=== PATIENT | male | born 1995 | race Caucasian/White ===

== ENCOUNTER 2018-03-23 09:22 | Emergency (ER) | payer SELFPAY ==
[2018-03-23 09:32] VITALS: BP 157/83; PULSE 107; RESP 14; TEMP 36.4; O2SAT 100
--- NOTE | 2018-03-23 10:15 | ED_ITS ---
HPI - Back Pain/Injury General Chief Complaint: Back Pain/Injury Stated Complaint: back/leg pain, can barely walk History of Present Illness HPI Narrative: HPI 30-year-old male presents for evaluation of 6 days of gradual onset waxing and waning low right-sided back pain that radiates down the posterior aspect of his right leg is with mild subjective paresthesias of his 5th toe, pain is provoked by walking, flexing and hip, and relieved by rest and laying supine. Patient denies a history of recent trauma, fevers, chills, unexpected weight loss, decreased perineal sensation when toileting, difficulty urinating or incontinence, morning stiffness, IV drug use, recent invasive medical procedures , presyncope, abdominal pain, Marfan's disease, or dysuria. M/S/F/SocHx notable for: please see HPI; remainder reviewed with patient and in chart. ROS: Negative constitutional, eye, cardiovascular, pulmonary, GI, , MSK, skin , neurologic, psychiatric, endocrine unless noted in the HPI. Exam Gen: Pleasant, non-toxic appearing, resting comfortably. HEENT: NC, AT, PEERL, EOMI. Resp: CTAB Card: RRR GI: ND, non-tender to palpation, no palpable midline masses, no palpable midline pulsatility. : No CVA tenderness to percussion bilaterally. MSK: No visible deformities, strength and tone WNL. No lower thoracic or lumbar spinal TTP, step offs or deformities. Right sided paraspinal back pain at approximately L5/S1, palpation intermittently reproduces a shooting sensation down the posterior aspect of the right leg, no further paraspinal TTP. Skin: Normal color with no visible lesions. Neuro: AO x 3, no facial asymmetry, vision and hearing WNL. Straight leg raise test - positive right, negative left. BLE distal sensation intact on all toes, 5 /5 dorsiflexion / plantarflexion bilaterally. Gait: mildly antalgic, normal, narrow based gait, able to walk unassisted and stand on heels and toes with full apparent strength. Psych: Mood and affect appropriate. MDM Previous chart, nursing note, and vitals reviewed. A: 30-year-old male presents for evaluation of 6 days of gradual onset waxing and waning low right-sided back pain that radiates down the posterior aspect of his right leg is with mild subjective paresthesias of his 5th toe, pain is provoked by walking, flexing and hip, and relieved by rest and laying supine. DDx: muscle strain, muscle spasm, sciatica, lumbar radiculopathy, cauda equina syndrome, spinal cord abscess, vertebral osteomyelitis, vertebral diskitis, fracture, seronegative spondyloarthropathy, abdominal aortic aneurysm. Evaluation: * Cauda equina - consider unlikely given normal perineal sensation, lack of incontinence or urinary retention. * Infection - abscess, vertebral osteomyelitis, and diskitis are unlikely as the patient is immunocompetent and is with an absence of infectious signs and risk factors on ROS, and a lack of point tenderness. * Fracture - doubt given the absence of spinal TTP and lack of prior trauma * Seronegative spondyloarthropathy - unlikely, no further evaluation currently indicated given the absence of morning stiffness and negative RA, psoriatic arthritis, and autoimmune disease history. * AAA or Dissection - given the lack of a palpable pulsatile abdominal mass, abdominal pain, presyncope, an abdominal aortic aneurysm as well as dissection is considered unlikely and further investigation is not currently indicated. * HTN - Patient was notified of their elevated blood pressure and recommended to follow up with their primary care physician. As the patient is without evidence of acute end organ dysfunction no further emergent evaluation is indicated as per the 2013 [employer] clinical policy. * Consider a lumbar radiculopathy, most likely L5 - S2 region to be the cause of the patient's symptoms. Counseled patient regarding natural course of radicular back pain, given return to care instructions, and recommendation for primary care physician follow up. Discharged with instructions to use OTC medications. Impression: Back Pain. (please reference below for remainder of encounter information) Related Data Home Medications Medication Instructions Recorded Confirmed acetaminophen [Tylenol Extra 1,000 mg PO Q6H PRN 03/23/18 03/23/18 Strength] Allergies Allergy/AdvReac Type Severity Reaction Status Date / Time No Known Drug Allergies Allergy Verified 03/23/18 09:34 PFSH Social History Smoking Status: Never smoker Exam Initial Vital Signs Initial Vital Signs: Vital Signs Temperature 97.6 F 03/23/18 09:32 Pulse Rate 107 H 03/23/18 09:32 Respiratory Rate 14 03/23/18 09:32 Blood Pressure 157/83 H 03/23/18 09:32 Pulse Oximetry 100 03/23/18 09:32 Course Vital Signs - 8 hr 03/23/18 09:32 Temperature 97.6 F Pulse Rate 107 H Respiratory Rate 14 Blood Pressure 157/83 H Pulse Oximetry 100 Discharge Plan Departure Prescriptions: No Action acetaminophen [Tylenol Extra Strength] 500 mg Tablet 1,000 mg PO Q6H PRN (Reason: Pain (Scale Score 1-3)) RF: 0
[2018-03-23] MEDS: IBUPROFEN 400 MG TABLET 800 MG PO (10:25)
[2018-03-23] MEDS: ACETAMINOPHEN 325 MG TABLET 975 MG PO (10:26)
== END 2018-03-23 10:38 | disposition home or self-care (01) ==
PROVIDERS: Emergency Provider Emergency Medicine
DX: M54.9 Dorsalgia, unspecified (principal)
CPT/HCPCS: 99282; 99283

== ENCOUNTER → 2020-11-09 09:59 | Outpatient (CLI) | payer OTHER, MEDICAID, SELFPAY ==
[2020-11-09] MEDS: COVID-19 VACC #1, MRNA(MOD) 100 MCG/0.5 ML VIAL IM (10:06)
== END ==
PROVIDERS: PCP Physician Assistant Medical; Visit Provider Internal Medicine
DX: Z23 Encounter for immunization (principal)
CPT/HCPCS: 0011A; 91301

== ENCOUNTER → 2020-12-08 09:46 | Outpatient (CLI) | payer OTHER, MEDICAID, SELFPAY ==
[2020-12-08] MEDS: COVID-19 VACC #2, MRNA(MOD) 100 MCG/0.5 ML VIAL IM (09:55)
== END ==
PROVIDERS: PCP Physician Assistant Medical; Visit Provider Internal Medicine
DX: Z23 Encounter for immunization (principal)
CPT/HCPCS: 0012A; 91301

== ENCOUNTER → 2021-08-22 09:19 | Outpatient (CLI) | payer OTHER, MEDICAID, SELFPAY ==
[2021-08-22 22:29] LABS: COVID19 - ORCAS (NP or Nasal) POSITIVE (Negative)
== END ==
PROVIDERS: PCP Physician Assistant Medical; Visit Provider Family Medicine
DX: U07.1 COVID-19 (principal); Z20.822 Contact with and (suspected) exposure to COVID-19
CPT/HCPCS: U0003

== ENCOUNTER → 2021-09-05 08:31 | Outpatient (CLI) | payer OTHER, MEDICAID, SELFPAY ==
[2021-09-05 23:58] LABS: COVID19 - ORCAS (NP or Nasal) POSITIVE (Negative)
== END ==
PROVIDERS: PCP Physician Assistant Medical; Referring Provider Physician Assistant; Visit Provider Physician Assistant
DX: U07.1 COVID-19 (principal); Z20.822 Contact with and (suspected) exposure to COVID-19
CPT/HCPCS: C9803; U0003

== ENCOUNTER → 2021-10-19 08:40 | Outpatient (CLI) | payer OTHER, MEDICAID, SELFPAY ==
[2021-10-19 19:24] LABS: COVID19 - ORCAS (NP or Nasal) Negative (Negative)
== END ==
PROVIDERS: PCP Physician Assistant Medical; Visit Provider Physician Assistant
DX: Z20.822 Contact with and (suspected) exposure to COVID-19 (principal)
CPT/HCPCS: C9803; U0003

== ENCOUNTER → 2024-09-08 15:43 | Outpatient (CLI) | payer OTHER, SELFPAY | PROVIDERS: PCP Physician Assistant; Visit Provider Physician Assistant | DX: J02.9 Acute pharyngitis, unspecified (principal) | CPT/HCPCS: 87070; 87880 ==

== ENCOUNTER → 2024-09-09 10:32 | Outpatient (CLI) | payer OTHER, SELFPAY ==
[2024-09-09 19:40] LABS: Add Manual Diff / Slide Review NO; Basophils Absolute Auto 0 /uL (0-100); Basophils Percent Auto 0.6 % (0-2); Eosinophils Absolute Auto 200 /uL (0-450); Eosinophils Percent Auto 2.8 % (2-4); Hematocrit 47.4 % (41-53); Hemoglobin 16.6 g/dL (13.5-17.5); Lymphocytes Absolute Auto 1400 /uL (1100-4500); Lymphocytes Percent Auto 18.7 % (25-40); Mean Corpuscular HGB Conc 35.1 % (30-36); Mean Corpuscular Hemoglobin 32.6 PG (26-34); Monocytes Absolute Auto 700 /uL (0-900); Monocytes Percent Auto 9.7 % (3-14); Neutrophils Absolute Auto 5200 /uL (1500-7000); Neutrophils Percent Auto 68.2 % (50-75); Platelet Count 251 X10^3/uL (150-400); White Blood Cell Count 7.6 X10^3/uL (4.5-11.0)
[2024-09-09 19:46] LABS: Alanine Aminotransferase 81 IU/L (<50); Albumin 4.7 g/dL (3.5-5.0); Albumin Globulin Ratio 1.6 (1.0-2.8); Alkaline Phosphatase 59 U/L (38-126); Aspartate Aminotransferase 54 IU/L (17-59); BUN Creatinine Ratio 13.9 (6-22); Bilirubin Total 1.2 mg/dL (0.2-1.3); Blood Urea Nitrogen 15 mg/dL (9-20); Calcium 9.5 mg/dL (8.4-10.2); Carbon Dioxide 29 mmol/L (22-32); Chloride 103 mmol/L (98-107); Estimated Glomerular Filt Rate > 60 mL/min (>60); Glucose 95 mg/dL (70-100); HEMOLYSIS 22 (0-50); Potassium 4.4 mmol/L (3.4-5.1); Sodium 136 mmol/L (137-145); Total Protein 7.7 g/dL (6.3-8.2)
[2024-09-09 19:48] LABS: Monotest Negative (Negative)
[2024-09-11 15:36] LABS: Hep C Virus Ab w/Reflex Quant NEGATIVE s/c (NEGATIVE)
== END ==
PROVIDERS: PCP Physician Assistant; Visit Provider Physician Assistant
DX: R05.9 Cough, unspecified (principal); R53.83 Other fatigue; J02.9 Acute pharyngitis, unspecified; R19.5 Other fecal abnormalities
CPT/HCPCS: 80053; 85025; 86318; 86803

== ENCOUNTER → 2024-09-11 10:13 | Outpatient (CLI) | payer OTHER, SELFPAY ==
[2024-09-11 19:46] LABS: Influenza A - CEPHEID Flu A NEGATIVE (NEGATIVE); Influenza B - CEPHEID Flu B NEGATIVE (NEGATIVE); Respiratory Syncytial Virus POSITIVE (Negative)
[2024-09-11 19:47] LABS: COVID-19 CEPHEID 4-PLEX PCR Negative (Negative)
== END ==
PROVIDERS: PCP Physician Assistant; Visit Provider Physician Assistant Medical
DX: J32.9 Chronic sinusitis, unspecified (principal); J98.4 Other disorders of lung
CPT/HCPCS: 0241U

== ENCOUNTER 2024-09-11 18:49 | Emergency (ER) | payer OTHER, MEDICAID, SELFPAY ==
[2024-09-11 19:19] VITALS: BP 149/83; PULSE 102; RESP 20; TEMP 37.3; O2SAT 97; BMI 31.6
[2024-09-11] MEDS: IBUPROFEN 400 MG TABLET PO (19:40)
--- NOTE | 2024-09-11 19:45 | DI.RAD.S_ITS ---
PROCEDURE: XR CHEST 2V INDICATIONS: 7 weeks of cough TECHNIQUE: 2 views of the chest were acquired. COMPARISON: [facility] ([place]), CR, XR CHEST 2V, 09/11/2024, 10:27. FINDINGS: Surgical changes and devices: None. Lungs and pleura: Lungs are clear. No pleural effusions or pneumothorax. Mediastinum: Mediastinal contours are normal. Heart size is normal. Bones and chest wall: No suspicious bony abnormalities. Soft tissues appear unremarkable. IMPRESSION: No acute pulmonary process. Dictated by: Hui Trevino M.D. on 09/11/2024 at 20:18 Approved by: Hui Trevino M.D. on 09/11/2024 at 20:19
[2024-09-11 20:07] VITALS: BP 159/108
[2024-09-11 20:08] VITALS: BP 145/81; PULSE 96; O2SAT 97
--- NOTE | 2024-09-11 20:11 | PC.NURSE ---
Pt ambulatory to imaging with environmental health technologist
[2024-09-11 20:29] LABS: Adenovirus Not Detected (Not Detect); B. parapertussis Not Detected (Not Detecte); Bordetella pertussis Not Detected (Not Detect); Chlamydophila pneumoniae Not Detected (Not Detect); Coronavirus 229E Not Detected (Not Detect); Coronavirus HKU1 Not Detected (Not Detect); Coronavirus NL 63 Not Detected (Not Detect); Coronavirus OC43 Not Detected (Not Detect); Human Metapneumovirus Not Detected (Not Detect); Human Rhinovirus/Enterovirus Not Detected (Not Detect); Influenza A Not Detected (Not Detect); Influenza B Not Detected (Not Detect); Mycoplasma pneumoniae Not Detected (Not Detect); Parainfluenza Virus 1 Not Detected (Not Detect); Parainfluenza Virus 2 Not Detected (Not Detect); Parainfluenza Virus 3 Not Detected (Not Detect); Parainfluenza Virus 4 Not Detected (Not Detect); Respiratory Syncytial Virus Detected (Not Detect); SARS- CoV-2 Not Detected (Not Detecte)
[2024-09-11 20:30] VITALS: PULSE 97; O2SAT 96
[2024-09-11 20:52] VITALS: BP 144/74; PULSE 93; RESP 14; O2SAT 97
[2024-09-11 21:00] VITALS: BP 131/68; PULSE 93; RESP 18; O2SAT 98
--- NOTE | 2024-09-11 21:25 | ED_ITS ---
HPI - General Adult General Chief complaint: Upper Respiratory Symptoms Stated complaint: 7 weeks of a cold; chest congestion, sore throat Time Seen by Provider: 09/11/24 20:05 Source: patient Mode of arrival: Ambulatory History of Present Illness HPI narrative: Patient was a 29-year-old male who arrives in the emergency department stating that he has been sick for the past 7 weeks. He describes his sickness has cough and congestion and sore throat and subjective fevers. He saw his primary doctor's clinic earlier in the week. Was started on amoxicillin and he has been taking this for the past week but states it was not helping his symptoms potentially even making them worse. He was tested for COVID at the clinic today which was negative. He was advised to come to the emergency department for further evaluation. Related Data Home Medications Medication Instructions Recorded Confirmed acetaminophen 500 mg tablet 1,000 mg PO Q6H PRN Pain (Scale 03/23/18 09/08/24 (Tylenol Extra Strength) Score 1-3) Previous Rx's Medication Instructions Recorded amoxicillin 875 mg-potassium 1 tab PO BID 10 days #20 tabs 09/08/24 clavulanate 125 mg tablet codeine 10 mg-guaifenesin 100 mg/5 5 ml PO Q6H PRN cough #120 mL 09/08/24 mL oral liquid albuterol sulfate 90 mcg/actuation See Rx Instructions inhalation 09/10/24 aerosol inhaler Q4-6H PRN shortness of breath or wheezing #6.7 grams benzonatate 200 mg capsule 200 mg PO BID-TID PRN cough #20 09/11/24 caps fluticasone propionate 50 1 spray intranasal BID #16 grams 09/11/24 mcg/actuation nasal spray,suspension (Flonase Allergy Relief) sodium chloride 0.65 % nasal spray 2 spray intranasal QID #44 mL 09/11/24 aerosol (Saline Nasal Mist) Allergies Allergy/AdvReac Type Severity Reaction Status Date / Time No Known Drug Allergies Allergy Verified 09/08/24 14:31 Review of Systems Review of Systems ROS Unobtainable: All systems reviewed & are unremarkable except as noted in HPI and below Patient History Social History Smoking Status: Never smoker Smoking Status: Never smoker alcohol intake frequency: 0-2 drinks per day Exam Initial Vital Signs Initial Vital Signs: Vital Signs Temperature 99.2 F 09/11/24 19:19 Pulse Rate 102 H 09/11/24 19:19 Respiratory Rate 20 09/11/24 19:19 Blood Pressure 149/83 H 09/11/24 19:19 Pulse Oximetry 97 09/11/24 19:19 Oxygen Delivery Method Room Air 09/11/24 19:19 Const General: cooperative, comfortable and No ill appearing Resp Effort & Inspection: normal respiratory effort Auscultation: clear to auscultation bilaterally Cardio Rate: regular rate Rhythm: regular rhythm Skin General: no rashes or lesions noted Neuro General: patient alert, patient awake and moves all extremities Extrem General: capillary refill normal Course Orders Ordered: ED Orders 09/11/24 19:34 Respiratory Panel (Film Array) Stat 09/11/24 19:45 CXR [XR chest 2V] Stat Discontinued Medications Ibuprofen (Ibuprofen 400 Mg Tablet) 400 mg PO NOW ONE Stop: 09/11/24 19:36 Last Admin: 09/11/24 19:40 Dose: 400 mg Documented By: ALMA Vital Signs Vital signs: Vital Signs - 8 hr 09/11/24 19:19 09/11/24 20:07 09/11/24 20:08 Temperature 99.2 F Pulse Rate 102 H Respiratory Rate 20 Blood Pressure 149/83 H 159/108 H 145/81 H Pulse Oximetry 97 Oxygen Delivery Method Room Air 09/11/24 20:08 09/11/24 20:30 09/11/24 20:52 Temperature Pulse Rate 96 H 97 H Respiratory Rate Blood Pressure 144/74 H Pulse Oximetry 97 96 Oxygen Delivery Method 09/11/24 20:52 09/11/24 21:00 09/11/24 21:00 Temperature Pulse Rate 93 H 93 H Respiratory Rate 14 18 Blood Pressure 131/68 Pulse Oximetry 97 98 Oxygen Delivery Method Room Air Medical Decision Making Medical Records Medical records reviewed: Yes I reviewed the patient's medical records. Lab Data Lab results reviewed: Yes I reviewed the patient's lab results. Labs: Lab Results 09/11/24 Range/Units 19:34 Chlamy pneumoniae PCR Not detected (Not Detect) Adenovirus (PCR) Not detected (Not Detect) B. pertussis DNA (PCR) Not detected (Not Detect) B.parapertussis DNA PCR Not detected (Not Detecte) Coronavirus OC43 (PCR) Not detected (Not Detect) Coronavirus HKU1 (PCR) Not detected (Not Detect) Coronavirus 229E (PCR) Not detected (Not Detect) SARS-CoV-2 (PCR) Not detected (Not Detecte) Coronavirus NL63 (PCR) Not detected (Not Detect) Human Metapneumovir PCR Not detected (Not Detect) Influenza Type A (PCR) Not detected (Not Detect) Influenza Type B (PCR) Not detected (Not Detect) M. pneumoniae (PCR) Not detected (Not Detect) Parainfluenza 1 (PCR) Not detected (Not Detect) Parainfluenza 2 (PCR) Not detected (Not Detect) Parainfluenza 3 (PCR) Not detected (Not Detect) Parainfluenza 4 (PCR) Not detected (Not Detect) RSV (PCR) Detected H (Not Detect) Entero/Rhino (PCR) Not detected (Not Detect) Imaging Data Chest x-ray: Radiologist's Impression: PROCEDURE: XR CHEST 2V INDICATIONS: 7 weeks of cough TECHNIQUE: 2 views of the chest were acquired. COMPARISON: [facility] [place], , XR CHEST 2V, 09/11/2024, 10:27. FINDINGS: Surgical changes and devices: None. Lungs and pleura: Lungs are clear. No pleural effusions or pneumothorax. Mediastinum: Mediastinal contours are normal. Heart size is normal. Bones and chest wall: No suspicious bony abnormalities. Soft tissues appear unremarkable. IMPRESSION: No acute pulmonary process. MDM Narrative Medical decision making narrative: Vital signs are unremarkable. He was not hypoxic. Not tachypneic. Chest x-ray does not show pneumonia and he was on amoxicillin. He was positive for RSV. He was positive for RSV earlier today but he was not told of this positive result. I do admit that RSV should not last more than 7-10 days and I can not say that this is why he has been feeling ill for the past several weeks. We did discuss the possibility that he had another infection earlier and now this is a 2nd infection but it could not be convinced this. No further workup required in the ER. No indication to change any of his medications. Recommended that he contact his primary doctor for further evaluation. They expressed understanding and agreement. Discharge Plan Departure Patient Disposition: Home Clinical Impression: Respiratory syncytial virus (RSV) Instructions: DI for Respiratory Syncytial Virus -- Adults Activity Restrictions/Additional Instructions: You were positive for respiratory syncytial virus (RSV). This is a virus that does not need antibiotics however since you have already started antibiotics and are more than senior care through the course of the treatment I would continue to take them as directed. I would recommend that you contact your primary care doctor for a follow-up. Return to the emergency department for new or worsening symptoms. Prescriptions: No Action albuterol sulfate 90 mcg/actuation HFA aerosol inhaler See Rx Instructions inhalation Q4-6H PRN (Reason: shortness of breath or wheezing) Qty: 6.7 0RF Rx Instructions: 1 to 2 puffs inhaled every 4-6 hours PRN; acetaminophen [Tylenol Extra Strength] 500 mg Tablet 1,000 mg PO Q6H PRN (Reason: Pain (Scale Score 1-3)) amoxicillin-pot clavulanate 875-125 mg tablet 1 tab PO BID 10 Days Qty: 20 0RF Rx Instructions: Take with food and water. codeine-guaifenesin 10-100 mg/5 mL liquid 5 ml PO Q6H PRN (Reason: cough) Qty: 120 0RF fluticasone propionate [Flonase Allergy Relief] 50 mcg/actuation spray,suspension 1 spray intranasal BID Qty: 16 0RF Rx Instructions: administer into each nostril benzonatate 200 mg capsule 200 mg PO BID-TID PRN (Reason: cough) Qty: 20 0RF Saline Nasal Mist 0.65 % aerosol,spray 2 spray intranasal QID Qty: 44 0RF Referrals: Sophia Bacon PA-C [Primary Care Provider] - Stand Alone Forms: Patient Portal/API/Survey
== END 2024-09-11 21:38 | disposition home or self-care (01) ==
PROVIDERS: Emergency Provider Emergency Medicine; PCP Physician Assistant
DX: B33.8 Other specified viral diseases (principal); R50.9 Fever, unspecified; R05.9 Cough, unspecified; F10.90 Alcohol use, unspecified, uncomplicated; J32.9 Chronic sinusitis, unspecified; J98.4 Other disorders of lung
CPT/HCPCS: 87635; 87400 ×2; 87420; 0241U; 71046; 87633; 99283